=== PATIENT | male | born 1985 | race Caucasian/White ===

== ENCOUNTER → 2021-05-26 | Outpatient (CLI) | payer OTHER | LOC: M.ULTRA 10:11 | PROVIDERS: ATTEND Family Medicine | DX: S89.90XA Unspecified injury of unspecified lower leg, initial encounter (principal); M79.661 Pain in right lower leg; X58.XXXA Exposure to other specified factors, initial encounter; Y93.89 Activity, other specified; Y92.89 Other specified places as the place of occurrence of the external cause; Y99.8 Other external cause status ==